=== PATIENT | female | born 1965 | race Caucasian/White ===

== ENCOUNTER 2024-04-11 11:34 | Emergency (ER) | payer SELFPAY ==
[2024-04-11 11:50] VITALS: PULSE 78; BMI 19.3
[2024-04-11 12:30] LABS: HEMATOCRIT 39.7 % (32.4-45.2); HEMOGLOBIN 12.8 GM/dL (10.7-15.3); MCHC 32.3 g/dl (32.0-36.0); MEAN CELL VOLUME 93.1 fl (80-96); MEAN PLT VOLUME 8.2 fl (7.5-11.1); PLATELET COUNT 166 10^3/uL (134-434); RBC 4.27 M/mm3 (3.60-5.2); RDW 13.7 % (11.6-15.6); WHITE BLOOD COUNT 8.1 K/mm3 (4.0-10.0)
[2024-04-11 12:35] LABS: INR 0.92 (0.83-1.09); PROTHROMBIN TIME (PATIENT) 10.6 SEC (9.7-13.0)
[2024-04-11 12:38] LABS: ACTIVATED PTT 21.9 SECONDS (25.2-36.5)
[2024-04-11 12:50] LABS: POTASSIUM 3.8 mmol/L (3.5-5.1)
[2024-04-11 12:52] LABS: ALBUMIN 3.7 g/dl (3.4-5.0); CALCIUM 9.2 mg/dL (8.5-10.1); MAGNESIUM 2.1 mg/dL (1.8-2.4)
[2024-04-11 12:53] LABS: BLOOD UREA NITROGEN 20.1 mg/dL (7-18)
[2024-04-11] MEDS: DIPHTH,PERTUSS(ACELL),TET 0.5 ML DISP.SYRIN IM ONE (12:55)
[2024-04-11 12:56] LABS: CREATININE 0.6 mg/dL (0.55-1.3)
[2024-04-11] MEDS: SODIUM CHLORIDE 1,000 ML IV STA (12:56)
[2024-04-11 12:57] LABS: ANISOCYTOSIS 0; BILIRUBIN,TOTAL 0.3 mg/dL (0.2-1); MACROCYTOSIS 0; TOT PROT 6.9 g/dl (6.4-8.2)
[2024-04-11] MEDS: ONDANSETRON 4 MG/2 ML VIAL IVPUSH ONE (12:57)
[2024-04-11] MEDS: ACETAMINOPHEN 1000 MG/100 ML BAG IVPB ONE (12:57)
[2024-04-11] MEDS ORDERED: LIDOCAINE HCL 1%, 10 MG/ML (20ML VIAL) ONE (15:59)
[2024-04-11 17:01] VITALS: BP 110/72; RESP 19; TEMP 98.5
== END 2024-04-11 17:07 | disposition home or self-care (01) ==
LOC: JER 11:34
PROC: 0HQ1XZZ Repair Face Skin, External Approach (ICD-10-PCS; principal; 2024-04-11)
PROC: 3E033NZ Introduction of Analgesics, Hypnotics, Sedatives into Peripheral Vein, Percutaneous Approach (ICD-10-PCS; 2024-04-11)
PROC: 3E033GC Introduction of Other Therapeutic Substance into Peripheral Vein, Percutaneous Approach (ICD-10-PCS; 2024-04-11)
PROC: 3E0337Z Introduction of Electrolytic and Water Balance Substance into Peripheral Vein, Percutaneous Approach (ICD-10-PCS; 2024-04-11)
PROC: 3E0234Z Introduction of Serum, Toxoid and Vaccine into Muscle, Percutaneous Approach (ICD-10-PCS; 2024-04-11)
DX: S01.411A Laceration without foreign body of right cheek and temporomandibular area, initial encounter (principal); U07.1 COVID-19; R55 Syncope and collapse; R11.2 Nausea with vomiting, unspecified; R50.9 Fever, unspecified; W18.30XA Fall on same level, unspecified, initial encounter; Z23 Encounter for immunization
CPT/HCPCS: 0241U-QW; 36415; 70450-TC; 71045-TC-FY; 80053; 82962; 83735; 84484; 85025; 85610; 85730; 90715; 93005; 93010; 99284-25; J0131